=== PATIENT | male | born 1955 | race Caucasian/White ===

== ENCOUNTER → 2019-08-14 | Outpatient (CLI) | payer MEDICARE ==
[~2019-08-14] MED LIST: IOHEXOL 350 MG/ML 100ML INFUS..BTL IV ONE
== END | disposition home or self-care (01) ==
LOC: RAH 07:51
PROVIDERS: ATTEND Nurse Practitioner Adult Health
DX: K42.9 Umbilical hernia without obstruction or gangrene (principal)
CPT/HCPCS: 74178; Q9967

== ENCOUNTER → 2020-10-28 | Outpatient (CLI) | payer MEDICARE | END | disposition home or self-care (01) | LOC: RAH 08:05 | PROVIDERS: ATTEND Nurse Practitioner Adult Health | DX: R06.2 Wheezing (principal); M47.815 Spondylosis without myelopathy or radiculopathy, thoracolumbar region | CPT/HCPCS: 71046 ==